=== PATIENT | female | born 1995 | race Caucasian/White ===

== ENCOUNTER 2020-05-18 21:49 | Emergency (ER) | payer OTHER ==
[~2020-05-18 21:49] MED LIST: COLACE100 MG PO; FEOSOL325 MG PO; LISINOPRIL 10MG10 MG PO; MOTRIN600 MG PO; OMEPRAZOLE 20MG20 MG PO; PRENATAL FORMU1 EACH PO; TRANDATE100 MG PO; TRI-SPRINTEC T1 EACH PO; ZOFRAN4 MG PO
[2020-05-18 23:16] LABS: BASOPHIL 0.4 % (0-2); EOSINOPHIL 3.8 % (0-5); HCT 44.2 % (37.0-47.0); HGB 14.6 g/dl (12.5-16.0); LYMPHOCYTE 23.6 % (15-48); MCH 28.8 pg (25.0-31.0); MCV 87.2 fL (78.0-100.0); MONOCYTE 6.7 % (0-12); MPV 9.5 fL (6.0-9.5); NEUTROPHIL 65.2 % (41-80); NRBC 0; PLT 338 K/uL (150-400); RBC 5.07 M/uL (4.20-5.40); RDW 12.9 % (11.5-14.0); WBC 11.7 K/uL (4.0-10.5)
[2020-05-18 23:37] LABS: BILIRUBIN NEGATIVE (NEGATIVE); BLOOD NEGATIVE Ery/uL (NEGATIVE); CLARITY CLEAR (CLEAR); COLOR YELLOW (YELLOW); GLUCOSE (U) NORMAL (NORMAL); LEUKOCYTES NEGATIVE Leu/uL (NEGATIVE); NITRITE NEGATIVE (NEGATIVE); PROTEIN NEGATIVE (NEGATIVE); UROBILINOGEN 0.2 mg/dL (0.2-1.0)
[2020-05-18 23:38] LABS: ALBUMIN 3.8 g/dL (3.4-5.0); BILIRUBIN - TOTAL 0.3 mg/dL (0.2-1.0); BUN/CREAT RATIO (CALC) 17.4 RATIO; CREATININE 0.69 mg/dL (0.51-0.95); GLOBULIN (CALCULATION) 3.4 g/dL; POTASSIUM 3.8 mmol/L (3.5-5.1); TOTAL PROTEIN 7.2 g/dL (6.4-8.2)
== END 2020-05-19 02:34 | disposition home or self-care (01) ==
LOC: FER 21:49
PROVIDERS: Emergency Medicine
DX: R55 Syncope and collapse (principal); I10 Essential (primary) hypertension; F17.210 Nicotine dependence, cigarettes, uncomplicated; Z86.14 Personal history of Methicillin resistant Staphylococcus aureus infection
CPT/HCPCS: 36415; 70450; 80053; 81003; 84484; 85025; 85379; 93005

== ENCOUNTER 2021-05-23 00:27 | Inpatient (IN) | payer OTHER ==
[2021-05-24 07:07] LABS: HCT 33.7 % (37.0-47.0); HGB 11.1 g/dl (12.5-16.0); MCH 28.2 pg (25.0-31.0); MCHC 32.9 g/dL (32.0-36.0); MCV 85.5 fL (78.0-100.0); MPV 10.3 fL (6.0-9.5); RBC 3.94 M/uL (4.20-5.40); RDW 13.6 % (11.5-14.0); WBC 11.5 K/uL (4.0-10.5)
[2021-05-25] MEDS ORDERED: KETOROLAC TROME10 MG PO (08:16)
[2021-05-25] MEDS ORDERED: TRANDATE100 MG PO (08:16)
== END 2021-05-25 16:05 | disposition home or self-care (01) | DRG 807 ==
LOC: FOB 00:27
PROVIDERS: Specialist; ADMIT Obstetrics & Gynecology
PROC: 10E0XZZ Delivery of Products of Conception, External Approach (ICD-10-PCS; principal; 2021-05-23)
PROC: 0HQ9XZZ Repair Perineum Skin, External Approach (ICD-10-PCS; 2021-05-23)
DX: O10.92 Unspecified pre-existing hypertension complicating childbirth (principal); Z37.0 Single live birth; Z3A.38 38 weeks gestation of pregnancy; O99.214 Obesity complicating childbirth; Z20.822 Contact with and (suspected) exposure to COVID-19; E66.01 Morbid (severe) obesity due to excess calories; O70.0 First degree perineal laceration during delivery; O99.824 Streptococcus B carrier state complicating childbirth; O99.02 Anemia complicating childbirth; O99.893 Other specified diseases and conditions complicating puerperium; M54.40 Lumbago with sciatica, unspecified side; Z79.899 Other long term (current) drug therapy
CPT/HCPCS: 36415; 80053; 80305; 81001; 82570; 83615; 84156; 84550; 86850; 86900; 86901; 90686; J0595; J2540; J7120; U0002